=== PATIENT | male | born 1960 | race Caucasian/White ===

== ENCOUNTER 2017-02-27 21:34 | Observation (INO) ==
[2017-02-27 22:45] LABS: BASO% 0.1 % (0.0-0.8); EOS# 0.03 X1000 (0.0-0.7); EOS% 0.2 % (0.0-10.0); HEMATOCRIT 50.2 % (42.0-52.0); IMM GRAN# 0.04 X1000 (0.0-0.04); IMM GRAN% 0.3 % (0.0-0.5); LYMPH% 3.8 % (20.5-51.1); MANUAL DIFF NEEDED? NO; MCH 30.1 PG (27-31); MCHC 33.9 g/dL (33-37); MONO% 5.3 % (1.7-9.3); MPV 10.8 FL (7.4-10.4); NEUT% 90.3 % (42.2-75.2); PLT 184 X1000 (130-400); RBC 5.64 XMIL (4.7-6.1)
[2017-02-27] MEDS ORDERED: NS 1,000 ML IV ONE (22:48)
[2017-02-27] MEDS ORDERED: NS 1,000 ML ONE (22:49)
[2017-02-27 22:58] LABS: INR 1.05 (0.86-1.15); PTT PL 25.3 Seconds (22.6-43.9)
[2017-02-27 23:22] LABS: ALBUMIN 4.2 g/dL (3.5-5.0); CALCIUM 8.9 mg/dL (8.8-10.2); POTASSIUM 4.7 mmol/L (3.5-5.1); TOTAL BILIRUBIN 0.9 mg/dL (0.20-1.00); TOTAL PROTEIN 6.5 g/dL (6.3-8.3)
[2017-02-28] LABS: UR AMPHETAMINES QUAL NONE DETECTED (NONE DETECT); UR BARBITUATES QUAL NONE DETECTED (NONE DETECT); UR BENZODIAZEPIN QUAL NONE DETECTED (NONE DETECT); UR CANNABINOIDS QUAL NONE DETECTED (NONE DETECT); UR COCAINE QUAL NONE DETECTED (NONE DETECT); UR MDMA QUAL NONE DETECTED (NONE DETECT); UR METHADONE QUAL NONE DETECTED (NONE DETECT); UR METHAMPHETAMINE QUAL NONE DETECTED (NONE DETECT); UR OPIATES QUAL NONE DETECTED (NONE DETECT); UR OXYCODONE QUAL NONE DETECTED (NONE DETECT); UR PCP QUAL NONE DETECTED (NONE DETECT); UR TCA QUAL NONE DETECTED (NONE DETECT)
[2017-02-28 00:22] LABS: BILIRUBIN URINE NEGATIVE (NEGATIVE); BLOOD URINE NEGATIVE (NEGATIVE); COLOR YELLOW; GLUCOSE URINE NEGATIVE (NEGATIVE); LEUKOCYTES URINE NEGATIVE (NEGATIVE); NITRITE URINE NEGATIVE (NEGATIVE); PROTEIN URINE TRACE mg/dL (NEGATIVE); UROBILINOGEN URINE NORMAL
[2017-02-28 00:29] LABS: URINE CULTURE PL NEEDED? YES; URINE EPITHELIAL CELLS <10 /HPF (<10); URINE RBC <10 /HPF (<10); URINE WBC <10 /HPF (<10)
[2017-02-28 00:30] LABS: CLARITY SLIGHTLY HAZY (CLEAR); URINE SOURCE CLEAN CATCH
[2017-02-28] MEDS ORDERED: MOTRIN PO ONE (01:36)
[2017-02-28] MEDS ORDERED: NS 1,000 ML IV ONE ×2 (01:36→02:38)
[2017-02-28] MEDS ORDERED: XYLOCAINE-MPF 1% INJ ONE (02:22)
[2017-02-28] MEDS ORDERED: ROCEPHIN IM ONE (02:22)
[2017-02-28] MEDS ORDERED: ROCEPHIN 1 GM/NS 1 GM/50 ML IVPB IV ONE (02:25)
[2017-02-28] MEDS ORDERED: LEVAQUIN 750 MG/D5W 750 MG/150 ML IVPB IV ONE (02:37)
[2017-02-28] MEDS ORDERED: FLAGYL 750 MG in NS 150 ML IV ONE (02:37)
[2017-02-28] MEDS ORDERED: ZOFRAN IV PRN ×2 (02:38→08:34)
[2017-02-28] MEDS ORDERED: PHENERGAN IV ONE (02:41)
[2017-02-28] MEDS ORDERED: SODIUM CHLORIDE 0.9% INJ ONE (02:41)
--- NOTE | 2017-02-28 02:43 | PROVIDER DOCUMENTATION ---
This chart was entered by Ivana Arevalo Scribe, acting as scribe for Erasto Bowen PA. HPI-Syncope/Dizziness - General Chief Complaint: Near Syncope Stated Complaint: ABD PAIN/VOMITING/SYNCOPE Time Seen by Provider: 02/27/17 22:25 Source: patient Allergies/Adverse Reactions: Patient Allergies Allergy/AdvReac Type Severity Reaction Status Date / Time No Known Allergies Allergy Verified 02/27/17 22:24 Home Medications: Home Medication List Medication Instructions Recorded Confirmed Last Taken Type Aspirin [Adult Low Dose Aspirin EC] 81 mg PO DAILY 07/26/12 02/27/17 07/19/12 10 :00 History Cholecalciferol (Vitamin D3) 1 each PO DAILY 07/26/12 02/27/17 07/26/12 09:00 History [Vitamin D] Fenofibrate 160 mg PO DAILY 07/26/12 02/27/17 07/25/12 09:00 History Folic Acid 1 mg PO DAILY 07/26/12 02/27/17 07/25/12 12:00 History Omeprazole/Sodium Bicarbonate 1 mg PO DIRECTED 07/26/12 02/27/17 07/25/12 09: 00 History [Zegerid 20 mg] PRAVAstatin [Pravachol] 40 mg PO DAILY 07/26/12 02/27/17 07/25/12 09:00 History Valsartan [Diovan] 160 mg PO DAILY 07/26/12 02/27/17 07/26/12 05:00 History Alogliptin Benzoate [Nesina] 25 mg PO DIRECTED 02/27/17 02/27/17 Unknown History Alprazolam [Alprazolam] 0.5 mg PO HS 02/27/17 02/27/17 Unknown History Glimepiride [Glimepiride] 2 mg PO DAILY 02/27/17 02/27/17 Unknown History - History of Present Illness-Syncope/Dizzy Nature of Presenting Problem: 56 year old F presents to the ED with a cc of nausea, vomiting, and lower ABD pain with an onset of this morning. Pt states that this evening coming out of the bathroom he fell. Pt states that he passed out but remembers everything. Prior Episodes: reports: single episode today Onset/Duration: reports: this morning Position/Activity at time of episode: reports: standing Symptoms prior to episode: reports: lightheaded, nausea/vomiting, abdominal pain Context: reports: collapsed (but did not lose consciousness) Loss of Consciousness: no loss of consciousness Location of injury. (If syncope resulted in an injury.): reports: head (face) Current Symptoms: reports: weakness Recently Seen Here or By Another Healthcare Provider: No Review of Systems - Adult - REVIEW OF SYSTEMS - ADULT Constitutional: reports: fever. denies: chills Eyes: reports: no symptoms reported Ears, Nose, Mouth & Throat: reports: no symptoms reported Cardiovascular: denies: chest pain, palpitations Respiratory: denies: cough, shortness of breath Gastrointestinal: reports: abdominal pain, nausea, vomiting Genitourinary: reports: no symptoms reported Musculoskeletal: reports: no symptoms reported Integumentary: reports: no symptoms reported Neurological: reports: syncope. denies: dizziness/vertigo, headache/migraines Psychiatric: reports: no symptoms reported Endocrine: reports: no symptoms reported Hematologic/Lymphatic: reports: no symptoms reported Allergic/Immunologic: reports: no symptoms reported All Other Systems: Reviewed and Negative Past History - Adult - PAST MEDICAL HISTORY-ADULT Review of Records: reports: Nursing Assessment Review, Medications Reviewed Major Childhood Illnesses: reports: denies history Cardiovascular: reports: HTN Respiratory: reports: sleep apnea Endocrine/Immune: reports: Diabetes - PRIOR SURGERIES/PROCEDURES Surgical/Procedure History: reports: other (cyst removal from head) - IMMUNIZATION STATUS Childhood Immunizations: See Nurse Assessment Flu Vaccine: See Nurse Assessment - SOCIAL HISTORY Smoking: non-smoker Substance Use: none/never Alcohol Use Frequency: never Physical Exam-General - PHYSICAL EXAM-ADULT Initial Vital Signs Reviewed: Yes - CONSTITUTIONAL General Appearance: alert, no apparent distress - HEAD, EARS, NOSE, MOUTH & THROAT HENMT: other (abrasion bridge of nose and left upper cheek) - RESPIRATORY Respiratory: chest non-tender, lungs clear, normal breath sounds - CARDIOVASCULAR Cardiovascular: normal peripheral pulses, regular rate, rhythm, no edema - GASTROINTESTINAL (ABDOMEN) Abdominal Exam: non tender, soft - SKIN Integumentary: normal color, normal turgor, warm/dry - PSYCHIATRIC Psych/Mental Status: normal mood/affect, normal thought content, normal thought process, oriented x 3 Progress - PLAN OF CARE/RESULTS Progress/Plan/Lab Results: Vital Signs - 8 hr 02/27/17 21:55 02/27/17 22:27 02/27/17 22:40 Temperature 100.4 F H Pulse Rate 108 H 107 H 102 H Respiratory Rate 19 16 16 Blood Pressure 92/51 93/54 103/64 O2 Sat by Pulse Oximetry 92 L 92 L 94 L 02/27/17 22:49 02/27/17 23:29 02/28/17 01:01 Temperature Pulse Rate 102 H 129 H 90 Respiratory Rate 15 20 18 Blood Pressure 109/57 110/69 95/51 O2 Sat by Pulse Oximetry 94 L 96 94 L 02/28/17 01:22 02/28/17 01:33 02/28/17 01:51 Temperature 100.3 F H Pulse Rate 99 H 90 Respiratory Rate 19 18 Blood Pressure 101/49 102/66 O2 Sat by Pulse Oximetry 95 95 02/28/17 02:04 02/28/17 02:27 Temperature 100.4 F H Pulse Rate 89 96 H Respiratory Rate 18 20 Blood Pressure 96/63 109/45 O2 Sat by Pulse Oximetry 97 94 L Laboratory Results - last 24 hr 02/27/17 02/27/17 02/27/17 22:17 22:17 22:17 WBC RBC Hgb Hct MCV MCH MCHC RDW Std Deviation Plt Count MPV Immature Gran % (Auto) Neut % (Auto) Lymph % (Auto) Wallace % (Auto) Eos % (Auto) Baso % (Auto) Immature Gran # (Auto) Neut # (Auto) Lymph # (Auto) Wallace # (Auto) Eos # (Auto) Baso # (Auto) PT INR APTT (Factor Assay) Sodium 138 Potassium 4.7 Chloride 101 Carbon Dioxide 18 L Anion Gap 19 BUN 33 H Creatinine 1.8 H Estimated GFR/1.73 m2 39 BUN/Creatinine Ratio 18 Glucose 164 H Calculated Osmolality 287 Calcium 8.9 Total Bilirubin 0.90 AST 22 ALT 20 Alkaline Phosphatase 72 Creatine Kinase 103 Troponin T < 0.010 Total Protein 6.5 Albumin 4.2 Globulin 2.0 Albumin/Globulin Ratio 2.0 Plasma Lactate 2.4 H Urine Source Urine Color Urine Clarity Urine pH Ur Specific [place] Urine Protein Urine Ketones Urine Blood Urine Nitrite Urine Bilirubin Urine Urobilinogen Urine Microscopic RBC Urine WBC Urine Microscopic WBC Ur Epithelial Cells Urine Crystals Urine Bacteria Urine Glucose Urine Opiates Screen Ur Oxycodone Screen Urine Methadone Screen Ur Barbituates Screen Ur Tricyclics Screen Ur Phencyclidine Scrn Ur Amphetamines Screen U Methamphetamines Scrn Urine MDMA Screen U Benzodiazepines Scrn Urine Cocaine Screen U Cannabinoids Screen Plasma/Serum Ethyl Alc Acetone Level 02/27/17 02/27/17 02/27/17 22:17 22:17 22:17 WBC 13.11 H RBC 5.64 Hgb 17.0 Hct 50.2 MCV 89.0 MCH 30.1 MCHC 33.9 RDW Std Deviation 14.2 Plt Count 184 MPV 10.8 H Immature Gran % (Auto) 0.3 Neut % (Auto) 90.3 H Lymph % (Auto) 3.8 L Wallace % (Auto) 5.3 Eos % (Auto) 0.2 Baso % (Auto) 0.1 Immature Gran # (Auto) 0.04 Neut # (Auto) 11.83 H Lymph # (Auto) 0.50 L Wallace # (Auto) 0.70 H Eos # (Auto) 0.03 Baso # (Auto) 0.01 PT 14.0 INR 1.05 APTT (Factor Assay) 25.3 Sodium Potassium Chloride Carbon Dioxide Anion Gap BUN Creatinine Estimated GFR/1.73 m2 BUN/Creatinine Ratio Glucose Calculated Osmolality Calcium Total Bilirubin AST ALT Alkaline Phosphatase Creatine Kinase Troponin T Total Protein Albumin Globulin Albumin/Globulin Ratio Plasma Lactate Urine Source Urine Color Urine Clarity Urine pH Ur Specific [place] Urine Protein Urine Ketones Urine Blood Urine Nitrite Urine Bilirubin Urine Urobilinogen Urine Microscopic RBC Urine WBC Urine Microscopic WBC Ur Epithelial Cells Urine Crystals Urine Bacteria Urine Glucose Urine Opiates Screen Ur Oxycodone Screen Urine Methadone Screen Ur Barbituates Screen Ur Tricyclics Screen Ur Phencyclidine Scrn Ur Amphetamines Screen U Methamphetamines Scrn Urine MDMA Screen U Benzodiazepines Scrn Urine Cocaine Screen U Cannabinoids Screen Plasma/Serum Ethyl Alc Acetone Level 02/27/17 02/27/17 02/27/17 22:17 23:28 23:28 WBC RBC Hgb Hct MCV MCH MCHC RDW Std Deviation Plt Count MPV Immature Gran % (Auto) Neut % (Auto) Lymph % (Auto) Wallace % (Auto) Eos % (Auto) Baso % (Auto) Immature Gran # (Auto) Neut # (Auto) Lymph # (Auto) Wallace # (Auto) Eos # (Auto) Baso # (Auto) PT INR APTT (Factor Assay) Sodium Potassium Chloride Carbon Dioxide Anion Gap BUN Creatinine Estimated GFR/1.73 m2 BUN/Creatinine Ratio Glucose Calculated Osmolality Calcium Total Bilirubin AST ALT Alkaline Phosphatase Creatine Kinase Troponin T Total Protein Albumin Globulin Albumin/Globulin Ratio Plasma Lactate Urine Source CLEAN CATCH Urine Color YELLOW Urine Clarity SLIGHTLY HAZY A Urine pH 5.0 Ur Specific [place] 1.020 Urine Protein TRACE A Urine Ketones TRACE Urine Blood NEGATIVE Urine Nitrite NEGATIVE Urine Bilirubin NEGATIVE Urine Urobilinogen NORMAL Urine Microscopic RBC <10 Urine WBC NEGATIVE Urine Microscopic WBC <10 Ur Epithelial Cells <10 Urine Crystals URIC ACID PRESENT Urine Bacteria 2+ Urine Glucose NEGATIVE Urine Opiates Screen NONE DETECTED Ur Oxycodone Screen NONE DETECTED Urine Methadone Screen NONE DETECTED Ur Barbituates Screen NONE DETECTED Ur Tricyclics Screen NONE DETECTED Ur Phencyclidine Scrn NONE DETECTED Ur Amphetamines Screen NONE DETECTED U Methamphetamines Scrn NONE DETECTED Urine MDMA Screen NONE DETECTED U Benzodiazepines Scrn NONE DETECTED Urine Cocaine Screen NONE DETECTED U Cannabinoids Screen NONE DETECTED Plasma/Serum Ethyl Alc Acetone Level NEGATIVE Orders Category Date Time Status Cardiac Monitoring DIRECTED Care 02/27/17 22:26 Active ED: Orthostatic Vital Signs (E as directed Care 02/27/17 22:27 Active Finger Stick Blood Sugar (ED) DIRECTED Care 02/27/17 22:26 Active Oxygen Therapy- ED Nursing DIRECTED Care 02/27/17 22:26 Active Repeat Vital Signs .Temp Care 02/28/17 01:21 Active Saline Loc NOW Care 02/27/17 22:26 Active ABDOMEN/PELVIS W/O CONTRAST [CT] Stat Exams 02/28/17 00:16 Taken CHEST-PORTABLE [RAD] Stat Exams 02/27/17 22:26 Taken FACIAL BONES W/O CONTRAST [CT] Stat Exams 02/27/17 22:47 Taken HEAD W/O CONTRAST [CT] Stat Exams 02/27/17 22:27 Taken ACETONE SERUM [CHEM] Stat Lab 02/28/17 00:21 Completed ALCOHOL BLOOD Stat Lab 02/27/17 22:17 Completed BLOOD CULTURE [BLDCUL] Stat Lab 02/28/17 02:22 Or[address] C DIFF TOXIN PL Stat Lab 02/28/17 02:29 Ordered CBC WITH ELECTRONIC DIFF [HEME] Stat Lab 02/27/17 22:17 Completed CK PROFILE [SP CHEM] Stat Lab 02/27/17 22:17 Completed COMPREHENSIVE METABOLIC PANEL [CHEM] Stat Lab 02/27/17 22:17 Completed LACTATE, PLASMA [CHEM] Stat Lab 02/27/17 22:17 Completed OCCULT BLOOD SCREENING [STOOL] Stat Lab 02/28/17 02:29 Uncollected PROTIME WITH INR PL [COAG] Stat Lab 02/27/17 22:[address] [COAG] Stat Lab 02/27/17 22:17 Completed SHIGA TOXIN STOOL [SANDERS] Stat Lab 02/28/17 02:29 Uncollected STOOL CULTURE [RM] Stat Lab 02/28/17 02:29 Uncollected TROPONIN T Stat Lab 02/27/17 22:[address] W/POSS RFLX CULT [URINALYSIS] Stat Lab 02/27/17 23:28 Completed URINE CULTURE [RM] Routine Lab 02/28/17 00:30 Ordered URINE DRUG SCREEN [address] Stat Lab 02/27/17 23:28 Completed WBC STOOL [STOOL] Stat Lab 02/28/17 02:29 Uncollected 0.9% Sodium Chloride Inj [Ns] 1,000 ml Med 02/27/17 22:49 Discontinued .ROUTE As Directed 0.9% Sodium Chloride Inj [Ns] 1,000 ml Med 02/27/17 22:48 Discontinued IV 999 mls/hr 0.9% Sodium Chloride Inj [Ns] 1,000 ml Med 02/28/17 01:36 Active IV 999 mls/hr CefTRIAXONE 1 GM/NS [Rocephin 1 gm/Ns] Med 02/28/17 02:25 Active 1 gm in 50 ml IV NOW CefTRIAXONE [Rocephin] Med 02/28/17 02:22 Discontinued 1 gm IM NOW ONE Ibuprofen [Motrin] Med 02/28/17 01:36 Discontinued 800 mg PO NOW ONE Lidocaine 1% Pf [Xylocaine-Mpf 1%] Med 02/28/17 02:22 Discontinued 5 ml INJ NOW ONE Pulse Oximetry Stat Oth 02/27/17 22:26 Active EKG [EKG] Stat Ther 02/27/17 22:24 Ordered Result Diagrams: 02/27/17 22:17 02/27/17 22:17 - EKG 1 Time of EKG reading by physician:: 22:23 EKG Read and Signed by:: Hung Freed EKG Interpretation (*Must complete 3 of following elements*): Normal Rate: 104 Rhythm: sinus tachycardia [place]: normal - CT/MRI 1 CT Study: Facial Bones, Head Impression: Normal CT Results: No fx - radiology 2 CT Study: Abdomen, Pelvis Impression: Abnormal (no acute abnormality. No definite cause for symptoms identified.) - CONSULTS/PCP/HOSPITALIST Notification #1 *Consult/PCP/Hospitalist*: Dr. Smith (Hospitalist) Time Discussed: 02:37 Reason/Comments: Will admit. Order stool cultures, levaquin, flagyl Departure - Departure Time of Disposition Decision: 02:36 DIAGNOSIS: Gastroenteritis Hypotension Qualifiers: Hypotension type: unspecified hypotension type Qualified Code(s): I95.9 - Hypotension, unspecified Fever Qualifiers: Fever type: unspecified Qualified Code(s): R50.9 - Fever, unspecified Disposition: ADMITTED INPATIENT 09 Certified Medical Emergency: Emergent Condition: Stable Referrals and Follow-Ups: Cam Marroquin MD [Primary Care Provider] - Attestation - Physician/ NADINE Attestation Patient care was provided by Advanced Practice Provider:: Yes Advanced Practice Provider:: Erasto Bowen Advanced Practice Provider documentation review:: The Mid-level provider documentation, treatment plan and medical decision making was reviewed by the physician who agrees with all treatment and medical decision making by the MLP. This chart was documented by the indicated scribe, (Ivana Arevalo Scribe) and accurately reflects the services I performed and decisions made by me, Erasto Bowen PA, as attested by the provider's signature.
--- NOTE | 2017-02-28 04:43 | EKG Report ---
Test Performed on : 02/27/2017 10:23:28 PM Test Reason : syncope Blood Pressure : / mmHG Vent. Rate : 104 BPM Atrial Rate : 104 BPM P-R Int : 124 ms QRS Dur : 066 ms QT Int : 324 ms P-R-T Axes : 029 -09 021 degrees QTc Int : 426 ms Sinus tachycardia. Otherwise normal ECG No previous ECGs available Unconfirmed Result
[2017-02-28] MEDS ORDERED: FLAGYL 500 MG/NS 500 MG/100 ML IVPB IV ONE (05:30)
[2017-02-28 07:21] LABS: MANUAL DIFF NEEDED? NO
[2017-02-28 07:41] LABS: BASO% 0.1 % (0.0-0.8); EOS# 0.04 X1000 (0.0-0.7); EOS% 0.5 % (0.0-10.0); HEMATOCRIT 43.1 % (42.0-52.0); HEMOGLOBIN 14.4 g/dL (14.0-18.0); IMM GRAN# 0.02 X1000 (0.0-0.04); IMM GRAN% 0.3 % (0.0-0.5); LYMPH% 7.9 % (20.5-51.1); MCH 30.4 PG (27-31); MCHC 33.4 g/dL (33-37); MCV 91.1 FL (81-99); MONO# 0.63 X1000 (0.11-0.59); MONO% 8.3 % (1.7-9.3); MPV 10.4 FL (7.4-10.4); NEUT% 82.9 % (42.2-75.2); PLT 143 X1000 (130-400); RBC 4.73 XMIL (4.7-6.1)
[2017-02-28 07:52] LABS: ALBUMIN 3.3 g/dL (3.5-5.0); CALCIUM 7.8 mg/dL (8.8-10.2); POTASSIUM 3.9 mmol/L (3.5-5.1); TOTAL BILIRUBIN 0.6 mg/dL (0.20-1.00); TOTAL PROTEIN 5.5 g/dL (6.3-8.3)
--- NOTE | 2017-02-28 07:58 | Diag Imaging Result Document ---
PROCEDURE NAME: CHEST-1 VIEW - 02/27/2017 CHEST SINGLE VIEW: FINDINGS: The lungs are well expanded. The heart is not enlarged. The vessels are not distended. There are no infiltrates. No pleural effusions identified. IMPRESSION: Negative chest.
--- NOTE | 2017-02-28 08:07 | Diag Imaging Result Document ---
PROCEDURE NAME: HEAD W/O CONTRAST - 02/27/2017 CT BRAIN WITHOUT CONTRAST: TECHNIQUE: Dose reduction protocol. FINDINGS: No parenchymal hemorrhage. No epidural or subdural hematoma. No subarachnoid hemorrhage. There is minimal atrophy. No mass identified on this noncontrasted exam. No hydrocephalus. No sinus opacification. IMPRESSION: 1. No hemorrhage. 2. Mild atrophy. A preliminary report was given at 1:09 a.m.
--- NOTE | 2017-02-28 08:10 | Diag Imaging Result Document ---
PROCEDURE NAME: FACIAL BONES W/O CONTRAST - 02/27/2017 CT FACE WITHOUT CONTRAST: FINDINGS: No sinus opacification. No air fluid levels. No depressed or displaced fracture. No dislocation. IMPRESSION: No acute bony injury. A preliminary report was given at 1:05 a.m.
--- NOTE | 2017-02-28 09:03 | Diag Imaging Result Document ---
PROCEDURE NAME: ABDOMEN/PELVIS W/O CONTRAST - 02/28/2017 CT SCAN OF THE ABDOMEN AND PELVIS WITHOUT CONTRAST: INDICATION: Right lower quadrant pain. Nausea. Intravenous contrast was not administered due to the patient's renal insufficiency. Preliminary interpretation was given by the on-call radiologist. FINDINGS: The lung bases show bibasilar atelectasis or scarring. There are no calcified gallstones. There is nonspecific bilateral perirenal soft tissue stranding. The appendix appears normal. There is no evidence for acute appendicitis. There is no hydronephrosis or urolithiasis. There is splenic granulomata. No evidence for bowel obstruction, free fluid, or free air. Small fat-containing left inguinal hernia is noted. There is a left L5 pars interarticularis defect. No evidence for abscess or diverticulitis. IMPRESSION: 1. No evidence for appendicitis. 2. Nonspecific bilateral perirenal stranding. 3. Dependent atelectasis or scarring at the lung bases.
--- NOTE | 2017-02-28 09:07 | HISTORY AND PHYSICAL ---
PRIMARY CARE PHYSICIAN: Dr. Marroquin. CHIEF COMPLAINT: Nausea, vomiting, lower abdominal pain, and passed out when coming out of his bathroom. HISTORY OF PRESENTING ILLNESS: This is a 56-year-old male, who presented to [facility] ER with complaints of nausea, vomiting and lower abdominal pain. He states that he had dry heaves yesterday morning that progressively became vomiting, remain nauseous. Began feeling weak. States that he went to the bathroom and, when he was in the bathroom he began feeling dizzy and, as he was coming out he passed out falling down. Has a scrape to his nose, left cheek and left arm. Workup in the ER showed a temp on arrival of 100.4 with a pulse of 108, blood pressure 92/51. PAST MEDICAL HISTORY: Hypertension, sleep apnea, and diabetes. PAST SURGICAL HISTORY: None. FAMILY HISTORY: Noncontributory. SOCIAL HISTORY: Currently lives with family. Denies any tobacco, alcohol, or illicit drug use. ALLERGIES: He has no known drug allergies. HOME MEDICATIONS: 1. Nesina 25 mg as directed. 2. Xanax 0.5 mg p.o. at bedtime. 3. Aspirin 81 mg p.o. daily. 4. Vitamin D 3 1000 units p.o. daily. 5. Fenofibrate 160 mg p.o. daily. 6. Folic acid 1 mg p.o. daily. 7. Glimepiride 2 mg p.o. daily. 8. Zegerid 20 mg as directed. 9. Pravachol 40 mg p.o. daily. 10. Diovan 160 mg p.o. daily. We will hold it at this time. LABORATORY DATA: Showed a white blood cell count of 13.11, hemoglobin 17, hematocrit 50.2, platelets 184. PT and INR of 14.0 and 1.05. Sodium 138, potassium 4.7, chloride 101, CO2 18. BUN of 33 with a creatinine of 1.8. Glucose 164. Creatinine kinase of 103. Troponin less than 0.010. He had a plasma lactate of 2.4. Urinalysis was negative, except for 2+ bacteria. Urine drug screen showed none detected. Serum alcohol level was negative. Acetone level was negative. RADIOLOGICAL DATA: Chest x-ray showed no acute disease. Head CT showed no hemorrhage and mild atrophy. Facial bone CT showed no acute bony injury. A CT of the abdomen and pelvis was obtained and, per ER documentation, physician read showed no acute disease. No definite cause for symptoms identified. We are still waiting on radiology read at this time. EKG showed sinus tachycardia at 104. He was admitted for further evaluation and treatment. REVIEW OF SYSTEMS: He denied any fever, chills, blurred vision. He was positive for some dizziness. Denied any chest pain, coughing, shortness of breath. Was positive for nausea, vomiting, lower abdominal pain. Denied any diarrhea or burning or hurting with urination. PHYSICAL EXAMINATION: VITAL SIGNS: On arrival, he had a temperature of 100.4 degrees, pulse 108, respirations 19, blood pressure was 92/51, satting 92% on room air. Currently, he has a temperature of 98.1 degrees, pulse 84, respirations 16, blood pressure 116/64, satting 96% on 2 L. GENERAL: This is a 56-year-old male, who is lying in the bed and answers questions appropriately. HEENT: Normocephalic and atraumatic. Pupils are equal, round, reactive to light. Extraocular movements are intact. Oropharynx and nares are clear. NECK: Supple. LUNGS: Clear to auscultation bilaterally with equal lung expansion and chest wall movement. HEART: With regular rate and rhythm. No murmurs, rubs, or gallops. ABDOMEN: Soft, nontender, nondistended. Bowel sounds are present x4 quadrants. EXTREMITIES: There is no clubbing, cyanosis, or edema. NEUROLOGICAL: The cranial nerves 2-12 appear grossly intact. ASSESSMENT: 1. Gastroenteritis. 2. Acute kidney injury. 3. Syncope secondary to dehydration. 4. Hypotension. PLAN: He was admitted to the medical unit at [facility], placed on telemetry. Diabetic diet. We obtained blood cultures x2. Will obtain stool cultures for white blood cells, shiga toxin, C. difficile toxin, white blood cells, and we will do an occult blood. Urine culture is pending. He is on normal saline at 125 mL an hour. He did receive Flagyl 750 mg IV x1 in the ER, Levaquin 750 mg IV x1 in the ER, and Rocephin 1 gram IV x1 in the ER. He received two 1000 mL boluses of fluid currently going at normal saline at 125 mL an hour. It is felt this is most likely a gastroenteritis that led to his dehydration and we will continue the fluids. Will hold off on any antibiotics at this time until we get the radiology read of the CT of the abdomen and pelvis before we restart any antibiotics. Place him on Zofran 4 mg IV q. 4 hours p.r.n. Dictated by BUFFY Beasley for Adan Smith MD cc: BUFFY Beasley MD Kirk L. Jackson, MD
[2017-02-28 15:00] VITALS: BP 113/80
[2017-02-28 16:23] LABS: HEMOGLOBIN A1C 6.5 % (4.8-6.0)
--- NOTE | 2017-03-01 07:49 | DISCHARGE SUMMARY ---
ADMISSION DATE: 02/28/2017 DISCHARGE DATE: 02/28/2017 DISPOSITION: Home. FOLLOWUP: Will be with the PCP, Dr. Cam Marroquin. ADMISSION DIAGNOSES: 1. Gastroenteritis. 2. Acute kidney injury. 3. Syncope secondary to dehydration. 4. Hypotension. DISCHARGE DIAGNOSES: 1. Syncope secondary to vasovagal reaction. 2. Dehydration. 3. [id number]-[id number] kidney injury. 4. Suspected hypoglycemia. PRESENTING COMPLAINT: Blackout. HISTORY OF PRESENTING COMPLAINT: Mr. Jenkins is a 56-year-old male with a history of diabetes, dyslipidemia, and hypertension, where glyburide was just added to his arsenal of medication recently. According to him, the morning prior to his presentation, he started feeling some stomach discomfort associated with some nausea. Did not really vomit and did not get any diarrhea. But, according to him anytime he picks up a stomach bug, he gets dehydrated, and those are the symptoms he gets. The patient referred that during the course of the day, he just felt lousy. He went to the bathroom to pass urine. Over there, he just broke into a sweat and then passed out, hitting his face. That did not last too long. He was able to get back to his bedroom. The came in a couple minutes later and checked on his glucose and he said it was 124. According to the patient, this is a little lower than what he normally is, and I am suspecting that even at that time he broke out in sweat and syncopized, this was even lower. The patient was subsequently admitted for medical care. HOSPITAL COURSE: The patient did pretty well during the hospital stay. Blood pressure responded well to IV fluids. His chemistry improved with bicarb improving from 18-22 and the creatinine was improving from 1.8 to 1.5. Of note, patient's baseline creatinine is about 1.4 to 1.5. So, I think this was an [id number] kidney disease which we assume presume was from the dehydration. Today, Mr. Jenkins referred to be doing fine. He has been up around. He does not feel any more dizziness after the adequate hydration during the short hospital stay. I did go over his medications with him. I think the glyburide that was added to his medication group probably is causing his sugars to be in the lower end, which he is probably not accustomed to. I have advised him to withhold that until he sees her PCP in about a week. I also advised him to withhold off on the valsartan for about a week until he gets to see his primary care doctor. I advised him to maintain himself well hydrated during the spring and summer since that is the time we see a lot of dehydration from excessive perspiration. We reviewed his initial imaging studies including CT scan of the abdomen, facial bones, head CT, chest CTA, which were unremarkable for any disease. His blood cultures were still pending, but his urinalysis was unremarkable. Toxicology was negative. I think patient is back to his baseline. He is, therefore, going to be discharged home with recommendations as mentioned above. I did explain this with the and the patient himself in the room and they are both in agreement and the thinks the is at baseline. The patient himself thinks that he is okay. We are going to therefore discharge him. He will follow up with Dr. Marroquin in about a week. cc: Adan Smith MD
== END 2017-02-28 18:05 | disposition home or self-care (01) ==
LOC: P.ED 21:34 → INTOOBSV 02-28 03:07 → P.MEDSURG 02-28 03:07
PROVIDERS: ATTEND Internal Medicine